=== PATIENT | male | born 1990 | race Caucasian/White ===

== ENCOUNTER 2022-12-30 08:42 | Emergency (ER) | payer OTHER ==
[~2022-12-30] VITALS: Ht 185.4 cm; Wt 61.3 kg
[2022-12-30 08:44] VITALS: BP 130/79; PULSE 104; TEMP 99.1; O2SAT 98
--- NOTE | 2022-12-30 10:00 | NUR ---
WOUND CLEANED WITH NS PER PA ORDER
[2022-12-30] MEDS ORDERED: ketorolac trometh inj. 60 MG/2 ML VIAL IM ONE (10:05)
--- NOTE | 2022-12-30 10:12 | NUR ---
APPLIED TRIPLE ANTIBIOTIC OINTMENT AND WRAPPED LEG WITH GAUZE BANDAGE.
[2022-12-30 10:24] VITALS: RESP 17
[2022-12-30] MEDS ORDERED: IBUP-1986 PO (11:14)
== END 2022-12-30 11:24 | disposition home or self-care (01) ==
LOC: ER 08:43
DX: S80.11XA Contusion of right lower leg, initial encounter (principal); Z88.2 Allergy status to sulfonamides; X58.XXXA Exposure to other specified factors, initial encounter; Y93.89 Activity, other specified; Y92.89 Other specified places as the place of occurrence of the external cause; Y99.8 Other external cause status
CPT/HCPCS: 73564; 73590; 96372; 99284; J1885